=== PATIENT | female | born 1960 | race Caucasian/White ===

== ENCOUNTER 2017-01-06 19:36 | Emergency (ER) | payer BC ==
[2017-01-06] MEDS ORDERED: ASPIRIN 81 MG TAB.CHEW ONE (19:46)
[2017-01-06] MEDS ORDERED: ASPIRIN 81 MG TAB.CHEW PO ONE (19:52)
--- NOTE | 2017-01-06 19:54 | ERNOTE ---
Chest Pain/Cardiac HPI Date of Service: 01/06/17 Time Seen by Provider: 01/06/17 19:48 Source: patient Exam Limitations: no limitations Allergies/Adverse Reactions: Allergies No Known Drug Allergies Allergy (Verified 01/06/17 19:42) Home Medications: HOME MEDICATIONS NK [No Home Medication] 01/06/17 [Last Taken Unknown] Narrative: Patient presents to the ED with chest pain. This is her mid left chest. It started at 10am and has been constant ever since. No fever or recent illnesses , no cough. No SOB. She has never had anything like this before. it has been constant since onset. No N/V/Diaphoresis. Denies prior cardiac history. No abodminal pain. Nothing seems to make it better or worse. Pain moderate right now. Radiates to her left back. Timing: constant Severity/Quality: moderate Location: left chest Chest Pain Radiation: other - left scapula Activities at Onset: none Modifying Factors - Improves: Present: nothing Modifying Factors - Worsens: Present: nothing Nitro Today/Relief: no nitro taken today Aspirin Treatment Today: no aspirin today, provided by ED Associated Symptoms: Absent: headache, syncope, shortness of breath, diaphoresis , fever/chills, abdominal pain Prior Chest Pain/Cardiac Workup: Denies: prior chest pain Prior Treatment: Denies: recently seen Review of Systems - Review of Systems Constitutional: Absent: fever Respiratory: Absent: shortness of breath Cardiology: Present: chest pain Gastrointestinal/Abdominal: Absent: abdominal pain Genitourinary: Absent: dysuria Neurological: Absent: weakness All Other Systems: All systems neg except as marked - Family History Mother Family History - Medical: No pertinent hx Family History - Cardiac/Respiratory: Coronary Heart Disease Family History - Cancer: No pertinent family hx Father Family History - Medical: Family History - Cardiac/Respiratory: No pertinent hx Family History - Cancer: No pertinent family hx Physical Exam - Physical Exam General Appearance: Present: alert, no apparent distress Head Exam: Present: normal inspection, no evidence of injury Eye Exam: Normal inspection: bilateral, PERRL: bilateral Ears, Nose, Throat: Present: normal ENT inspection Neck: Present: normal inspection Respiratory: Present: no respiratory distress, normal breath sounds, no accessory muscle use, lungs clear Cardiovascular/Chest: Present: normal peripheral pulses, tachycardia Gastrointestinal/Abdominal: Present: normal bowel sounds, nontender, nondistended, soft Back Exam: Absent: CVA tenderness (R), CVA tenderness (L) Extremity Exam: Present: normal inspection, other - no dvt findings Neurological Exam: Present: alert, normal mood/affect, no motor/sensory deficits Skin Exam: Present: normal color, warm/dry ED Progress - Vital Signs Patient's Vital Signs:: I have reviewed the patient's vital signs. - EKG EKG: NSR EKG read: Interp. by me EKG Comments: NSR [id number], there is an abnormal V2 in isolation. This was immediately repeated V2 lead re-positioned and No ST elevation in this lead. Second EKG reveals no clear STEMI, non-specific. - Progress/Reassessment Progress Note-Subjective: 01/06/17 20:02 I saw the patient at shift change. Dr Montana arrived, we reviewed EKG and my work-up and she will assume care. Pending labs, response to NTG and CXR. Please see her note. - Transfer of Care Physician Sign Out: Vince Garcia Receiving Physician: Liliam Montana Pending Results: Labs, Pain-control, X-ray results Expected Disposition: Admit Departure Clinical Impression: Chest pain - Departure Disposition: [facility] Condition: Stable
[2017-01-06] MEDS: NITROGLYCERIN 0.4 MG/TAB BTL SL PRN ×3 (19:55→20:10)
[2017-01-06 20:09] LABS: Mean Cell Volume 57.5 fl (78-100); Mean Corpuscular Hgb Conc 27.8 g/dl (32-36); Mean Platelet Volume 8.8 fl (6.0-9.5); Platelet Count 456 K/mm3 (150-450); Red Blood Count 4.12 M/mm3 (4.2-5.4); Red Cell Distribution Width 21.2 % (11.5-14.0); White Blood Count 9.9 K/mm3 (4.0-10.5)
--- NOTE | 2017-01-06 20:10 | ERNOTE ---
Chest Pain/Cardiac HPI Chief Complaint: Chest Pain Time Seen by Provider: 01/06/17 19:48 Source: patient, RN/MD, RN notes reviewed Exam Limitations: no limitations Immunizations: IMMUNIZATION HX Immunizations Up to Date No: Unknown History of Influenza Vaccine No Hx Pneumococcal Vaccination No Allergies/Adverse Reactions: Allergies No Known Drug Allergies Allergy (Verified 01/06/17 19:42) Home Medications: HOME MEDICATIONS NK [No Home Medication] 01/06/17 [Last Taken Unknown] Narrative: Patient does admit to shortness of breath when walking further than 5 feet. 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 Pt did have an 18 beat run of ventricular tachycardia after getting up to go to the bathroom. She denies noting any rapid heart rate, and states that she feels fine other than the chest pain. Date (Duration): 01/06/17 Time (Timing): 10:00 Timing: constant, other - improving as long as she doesn't move Severity/Quality: moderate, pressure Location: central Chest Pain Radiation: shoulders - left Activities at Onset: activity - moving boxes Modifying Factors - Improves: Present: nothing Prior Chest Pain/Cardiac Workup: Reports: no prior cardiac workup Prior Treatment: Denies: recently seen - has not seen a physician for years - Patient's Past Medical History Patient History - Medical: No pertinent hx Patient History - Cardiac/Respiratory: No pertinent hx Patient History - Cancer: No Hx of Cancer Patient History - Surgical Procedures: Tubal Ligation Patient History - Other: None - Family History Mother Family History - Medical: No pertinent hx Family History - Cardiac/Respiratory: Coronary Heart Disease Family History - Cancer: No pertinent family hx Father Family History - Medical: Family History - Cardiac/Respiratory: No pertinent hx Family History - Cancer: No pertinent family hx - Social History Living Situations: spouse Abuse History: No History of abuse Psych History: No pertinent hx Smoking Status: Former smoker Have you smoked in the past 12 months: No Do you dip or chew tobacco: No Alcohol Use: none Drug Use: none - Immunizations Immunizations Up to Date: No - Unknown Hx Pneumococcal Vaccination: No History of Influenza Vaccine: No Physical Exam - Physical Exam General Appearance: Present: wd/wn, alert, no apparent distress Head Exam: Present: normal inspection, no evidence of injury Neck: Present: normal inspection Respiratory: Present: no respiratory distress Cardiovascular/Chest: Present: regular rate, rhythm Gastrointestinal/Abdominal: Present: normal bowel sounds, nontender, nondistended, soft Rectal Exam: Present: nontender, normal rectal tone, blood-streaked stool Back Exam: Present: normal inspection, normal range of motion Extremity Exam: Present: normal inspection, non-tender, normal range of motion, no edema Neurological Exam: Present: alert, oriented, normal mood/affect, no motor/ sensory deficits Skin Exam: Present: pallor ED Progress - Results and Orders Patient's Lab Results:: I have reviewed the patient's lab results. Results and Orders: Laboratory Tests 01/06/17 01/06/17 01/06/17 19:55 19:55 19:55 WBC 9.9 RBC 4.12 L Hgb 6.6 L* Hct 23.7 L* MCV 57.5 L MCH 16.0 L MCHC 27.8 L RDW 21.2 H Plt Count 456 H MPV 8.8 Neutrophils % (Manual) 68 Band Neuts % (Manual) 1 Lymphocytes % (Manual) 26 Monocytes % (Manual) 4 Eosinophils % (Manual) 1 Neutrophils # (Manual) 6.7 H Lymphocytes # (Manual) 2.6 Monocytes # (Manual) 0.4 Eosinophils # (Manual) 0.1 Platelet Estimate Increased H Polychromasia Trace Hypochromasia 3+ Poikilocytosis 1+ Anisocytosis 3+ Microcytosis 3+ Macrocytosis 1+ Target Cells 1+ Ovalocytes 1+ Elliptocytes Trace Schistocytes Trace D-Dimer 0.87 H Sodium 139 Plasma Sodium 140 Potassium 3.9 Chloride 101 Carbon Dioxide 26.2 Anion Gap 15.7 H BUN 15 Creatinine 0.82 Est GFR (Non-Af Amer) 76 BUN/Creatinine Ratio 18.3 Random Glucose 144 H Calcium 8.7 Calcium Adj for Albumin 8.8 Total Bilirubin 0.4 AST 62 H ALT 21 Alkaline Phosphatase 112 Troponin I 7.753 H* Total Protein 7.2 Albumin 3.5 Stool Occult Blood 01/06/17 21:05 WBC RBC Hgb Hct MCV MCH MCHC RDW Plt Count MPV Neutrophils % (Manual) Band Neuts % (Manual) Lymphocytes % (Manual) Monocytes % (Manual) Eosinophils % (Manual) Neutrophils # (Manual) Lymphocytes # (Manual) Monocytes # (Manual) Eosinophils # (Manual) Platelet Estimate Polychromasia Hypochromasia Poikilocytosis Anisocytosis Microcytosis Macrocytosis Target Cells Ovalocytes Elliptocytes Schistocytes D-Dimer Sodium Plasma Sodium Potassium Chloride Carbon Dioxide Anion Gap BUN Creatinine Est GFR (Non-Af Amer) BUN/Creatinine Ratio Random Glucose Calcium Calcium Adj for Albumin Total Bilirubin AST ALT Alkaline Phosphatase Troponin I Total Protein Albumin Stool Occult Blood Positive H - Vital Signs Patient's Vital Signs:: I have reviewed the patient's vital signs. Vital Signs: Vital Signs 01/06/17 01/06/17 01/06/17 19:42 19:55 20:00 Temperature 37.3 C 37.3 C 37.3 C Pulse Rate 99 102 H 87 Respiratory 20 20 20 Rate Blood Pressure 175/93 167/88 141/84 O2 Sat by Pulse 99 99 97 Oximetry - EKG EKG read: Reviewed by me - X-Ray X-Ray #1 X-Ray: chest Interpretation: Interp. by me X-ray Comments: Positive cardiomegaly, diaphragmatic hernia, widened mediastinum, no infiltrates noted. No previous exams to compare to. - Progress/Reassessment Chief Complaint: Chest Pain Plan - Plan Plan: I spoke with Dr. Medina at [facility] in [place] at 21:15, they declined because of the 18 beat run of ventricular tachycardia. I then called [facility] at 21: 23, and spoke with Dr. Jimenez, the party plan sales unit sales leader labor relations representative for the STEMI team. He agreed to accept the patient for transfer to their facility. We discussed nitroglycerin - agreed to use the paste for the patient, and Heparin, which I asked to hold in view of the patient's hemoglobin of 6.6, Dr. Jimenez agreed with that. EMS is here now to transport the patient (22:10), I have discussed the patient and her presentation, lab values and plans with the EMS team. We were unable to transport the patient by air secondary to weather. Patient will go to the CVICU. Patient received 324 mg of aspirin and nitro SL X 3. Patient now receiving morphine 2 mg IV and Ondansetron 4 mg IV. Departure Clinical Impression: Gastric bleed, Cardiomegaly, Severe anemia Chest pain Qualifiers: Chest pain type: chest pain due to myocardial ischemia Ischemic chest pain type : unstable angina pectoris Qualified Code(s): I20.0 - Unstable angina STEMI (ST elevation myocardial infarction) Qualifiers: Involved coronary artery: unspecified coronary artery Qualified Code(s): I21.3 - ST elevation (STEMI) myocardial infarction of unspecified site - Departure Disposition: [facility] Condition: Serious
[2017-01-06 20:14] LABS: Hematocrit 23.7 % (37.0-47.0); Hemoglobin 6.6 gm/dL (12.5-16.0)
[2017-01-06 20:17] LABS: Total Cells Counted 100
[2017-01-06 20:19] LABS: Albumin * 3.5 gm/dl (3.4-5.0); Anion Gap 15.7 mmol/L (6.8-13.8); BUN/Creatinine Ratio 18.3 (9.0-21.6); Bilirubin, Total 0.4 mg/dL (0.0-1.1); Ca. Corrected For Albumin 8.8 mg/dL (8.4-10.2); Calcium * 8.7 mg/dL (7.9-10.9); Carbon Dioxide 26.2 mmol/L (24-32.6); Potassium 3.9 mmol/L (3.4-4.6); Total Protein 7.2 gm/dL (6.2-8.2)
[2017-01-06 20:39] LABS: Troponin I 7.753 ng/ml (0.00-0.10)
[2017-01-06 20:50] LABS: Band 1 % (0-2.0); Eosinophil 1 % (0-3); Lymphocyte 26 % (20-51); Monocyte 4 % (0-9); Neutrophil 68 % (42-75); Neutrophil # 6.7 K/mm3 (1.3-6.0)
[2017-01-06 20:51] LABS: Anisocytosis 3+; Hypochromia 3+
[2017-01-06 20:52] LABS: Macrocytosis 1+; Microcytosis 3+
[2017-01-06 20:54] LABS: Ovalocytes 1+
[2017-01-06 20:58] LABS: Target Cells 1+
[2017-01-06 20:59] LABS: Polychromasia Trace
[2017-01-06 21:01] LABS: Platelet Estimate Increased (NORMAL); Poikilocytosis 1+; Schistocytes Trace
[2017-01-06] MEDS ORDERED: NITROGLYCERIN 1 INCH PACKET TD ONE ×2 (21:36→21:43)
[2017-01-06 21:58] VITALS: BP 152/87
[2017-01-06] MEDS ORDERED: ONDANSETRON HCL/PF 2 MG/ML VIAL IV ONE (22:17)
[2017-01-06] MEDS ORDERED: MORPHINE SULFATE 2 MG/ML DISP.SYRIN ONE (22:17)
[2017-01-06] MEDS ORDERED: ONDANSETRON HCL/PF 2 MG/ML VIAL ONE (22:17)
[2017-01-06] MEDS ORDERED: MORPHINE SULFATE 2 MG/ML DISP.SYRIN IV ONE (22:17)
[2017-01-06 22:25] LABS: Urine Bilirubin Negative (NEGATIVE); Urine Ketone Negative (NEGATIVE); Urine Nitrite Negative (NEGATIVE); Urine Protein Negative (NEGATIVE); Urine Urobilinogen Normal (NORMAL)
[2017-01-06 22:33] LABS: Urine Appearance Clear; Urine Bacteria TRACE; Urine Blood 5 /ul (NEGATIVE); Urine Color Yellow; Urine RBC None Seen /hpf (0-5); Urine WBC 0-5 /hpf (0-5)
== END 2017-01-06 22:23 | disposition short-term general hospital (02) ==
LOC: ER 19:36
DX: I20.0 Unstable angina (principal); I21.3 ST elevation (STEMI) myocardial infarction of unspecified site; D64.89 Other specified anemias; I51.7 Cardiomegaly
CPT/HCPCS: 36415; 71010; 80053; 81001; 82272; 84484; 85007; 85025; 85379; 86850; 86900; 87077; 87086; 87186; 93005; 96374; 96375; 99284; J2405